=== PATIENT | male | born 1995 | race Caucasian/White ===

== ENCOUNTER 2025-04-01 14:46 | Emergency (ER) | payer SELFPAY ==
[~2025-04-01] VITALS: Ht 177.8 cm; Wt 61.0 kg
[2025-04-01 15:20] VITALS: O2SAT 97
[2025-04-01 15:23] VITALS: BP 115/67; PULSE 98; RESP 18; TEMP 36.7; O2SAT 97
== END 2025-04-01 15:29 | disposition left against medical advice (07) ==
LOC: ER 14:46
DX: M25.562 Pain in left knee (principal); Z53.21 Procedure and treatment not carried out due to patient leaving prior to being seen by health care provider